=== PATIENT | female | born 1945 | race Caucasian/White ===

== ENCOUNTER → 2016-10-23 | Outpatient (CLI) | payer OTHER ==
[~2016-10-23] MED LIST: ASPCH81X PO; LISI10TA PO; LORA-741 PO; METO25TA56 PO; TAMO20TA47 PO
--- NOTE | 2016-10-23 16:06 | DIAGNOSTIC IMAGING REPORT ---
LEFT HAND MIN 3 VIEWS ROUTINE, LEFT WRIST MIN 3 VIEWS ROUTINE CLINICAL HISTORY: Left hand and wrist pain. COMPARISON STUDY: None. FINDINGS: The bones are osteopenic. Mild to moderate osteoarthritis seen within the DIP, PIP, and MCP joints. There is moderate to severe osteoarthritis at the STT joint and first carpometacarpal joint. Mildly displaced and angulated midshaft fracture of the fifth metacarpal. This demonstrates 3 mm of dorsal displacement. No fracture or dislocation within the wrist. Mild dorsal soft tissue swelling within the wrist. IMPRESSION: 1. Mildly displaced midshaft fifth metacarpal fracture. 2. No fracture or dislocation within the left wrist. Electronically signed by: Reynold Loredo M.D. 10/23/2016 4:05 PM Dictated Date/Time: 10/23/2016 3:57 PM
== END | disposition home or self-care (01) ==
LOC: C.RAD1850 15:27
PROVIDERS: ATTEND Physician Assistant
DX: M79.642 Pain in left hand (principal)

== ENCOUNTER → 2016-10-24 | Outpatient (CLI) | payer OTHER ==
--- NOTE | 2016-10-24 12:49 | DIAGNOSTIC IMAGING REPORT ---
LEFT HAND MIN 3 VIEWS CLINICAL HISTORY: Fracture. COMPARISON: 10/23/2016 DISCUSSION: There is a spiral fracture of the fifth metacarpal. Alignment remains similar to the preceding study. There is been interval base but of a fiberglass cast. The bones are osteopenic. There are osteoarthritic changes most pronounced the level the first carpal metacarpal joint. IMPRESSION: Casted fifth metacarpal fracture. No change in alignment. Electronically signed by: Xavier Darby M.D. 10/24/2016 12:48 PM Dictated Date/Time: 10/24/2016 12:46 PM
--- NOTE | 2016-10-24 12:50 | DIAGNOSTIC IMAGING REPORT ---
LEFT WRIST MIN 3 VIEWS ROUTINE CLINICAL HISTORY: Left wrist pain COMPARISON: None. DISCUSSION: The bones are osteopenic. There is a spiral/oblique fracture of the fifth metacarpal. No fractures the distal radius or ulna are visualized. IMPRESSION: Casted fracture the fifth metacarpal. No fractures of the radius or ulna are visualized. Electronically signed by: Xavier Darby M.D. 10/24/2016 12:49 PM Dictated Date/Time: 10/24/2016 12:48 PM
== END | disposition home or self-care (01) ==
LOC: C.RDSM 12:26
PROVIDERS: ATTEND Physician Assistant
DX: S62.398A Other fracture of other metacarpal bone, initial encounter for closed fracture (principal); M25.532 Pain in left wrist; X58.XXXA Exposure to other specified factors, initial encounter

== ENCOUNTER → 2016-10-31 | Outpatient (CLI) | payer OTHER ==
--- NOTE | 2016-10-31 13:15 | DIAGNOSTIC IMAGING REPORT ---
LEFT WRIST MIN 3 VIEWS ROUTINE CLINICAL HISTORY: LEFT HAND AND WRIST PAIN pain COMPARISON: 10/24/2016 DISCUSSION: Oblique fracture fifth metacarpal. Degenerative change of the intercarpal as well as carpal metacarpal joints. This is most prominent at the level from. Moderate radiocarpal degenerative change. Mild sclerosis of the lunate mild soft tissue edema. IMPRESSION: 1. Oblique fracture fifth metacarpal. 2. Degenerative change of all remaining osseous structures. 3. Moderate soft tissue edema. The above report was generated using voice recognition software. It may contain grammatical, syntax or spelling errors. Electronically signed by: Satya Nolasco M.D. 10/31/2016 1:14 PM Dictated Date/Time: 10/31/2016 1:12 PM
--- NOTE | 2016-10-31 13:31 | DIAGNOSTIC IMAGING REPORT ---
LEFT HAND 3 VIEWS HISTORY: LEFT HAND AND WRIST PAIN COMPARISON: Left hand 10/24/2016. FINDINGS: Overlying cast material has been removed. No significant healing within the slightly displaced oblique fracture within the mid shaft of the fifth metacarpal. The bones are osteopenic. Moderate osteoarthritis within the DIP and PIP joints of the hand. Severe osteoarthritis at the interphalangeal joint of the thumb and radial side of the wrist. No radiopaque foreign bodies. IMPRESSION: No significant healing and no significant change in alignment of the slightly displaced oblique fracture within the mid shaft of the left fifth metacarpal. Electronically signed by: Reynold Loredo M.D. 10/31/2016 1:30 PM Dictated Date/Time: 10/31/2016 1:26 PM
== END | disposition home or self-care (01) ==
LOC: C.RDSM 13:19
PROVIDERS: ATTEND Physician Assistant
DX: S62.308A Unspecified fracture of other metacarpal bone, initial encounter for closed fracture (principal); X58.XXXA Exposure to other specified factors, initial encounter; M25.532 Pain in left wrist

== ENCOUNTER → 2016-11-06 | Outpatient (CLI) | payer OTHER ==
[2015-11-03 13:38] VITALS: BP 130/78; PULSE 66
[2016-11-06 13:36] VITALS: BP_SYST 130; BP_SYST 148; BP_DIAS 88; BP_DIAS 93; PULSE 64; TEMP 36.9; O2SAT 94
--- NOTE | 2016-11-06 18:26 | Radiation Oncology Follow-Up ---
Radiation Oncology Follow-Up Date of Visit Nov 06, 2016. Reason For Visit Annual follow up Radiation Completion Date 2011 Diagnosis (1) Breast cancer Status: Resolved Onset Date: 11/06/2011 Histology Subtype: ductal Stage: l (A) Permanent Comment: Abnormal right breast mammogram Biopsy positive for invasive ductal carcinoma status post right partial mastectomy and sentinel lymph node biopsy followed by completion axillary dissection 11/27/2011 stage pT1c [id number] Estrogen receptor positive, progesterone receptor positive, HER-2/estelle negative Oncotype DX score 2 Status post completion of radiation therapy February 2012 received 6120 cGy Continues on antiestrogen therapy Last Edited By: Stacey Khalil on Nov 03, 2015 14:18 Interim History She has been doing well over this past year. She is noted no changes to her breast. She noticed no masses or tenderness no change in the axilla. She's had no swelling of her arm. She'll be having a mammogram next week in [place] when she sees her breast surgeon. She had previously been on Arimidex and then tamoxifen. Both medications had significant side effects. She had dizziness and diarrhea. Medication be stopped and held for 2 weeks and then restarted. Unfortunately the side effects would recur. She fell and injured her left hand and wrist first week of October. She now has a half cast in place. Allergies Coded Allergies: Penicillins (Verified Allergy, Mild, RASH, 12/07/15) Cephalexin (Verified Allergy, Unknown, severe chills after taking medication , 12/07/15) Home Medications Scheduled Aspirin (Aspirin Chewable), 81 MG PO DAILY Lisinopril (Prinivil), 10 MG PO BID Metoprolol Tartrate (Lopressor) (Lopressor), 25 MG PO BID Review of Systems Gastrointestinal: Symptoms: WNL Oral: Symptoms: No Problems Respiratory: Symptoms: WNL Respiratory Comments: Patient currently getting over PNX, finished z-kathi Other Respiratory: shallow breathing Urinary: Symptoms: WNL Skin: Symptoms: No Problems Other Skin Symptoms: Itchy on right nipple Breast: Right Upper Arm Measurement: 30.0 Right Mid Arm Measurement: 22.5 Right Wrist Measurement: 15.5 Left Upper Arm Measurement: 31.0 Left Mid Arm Measurement: 22.0 Left Wrist Measurement: 15.5 Arm Dominence: Right Physical Exam Vital Signs Date Time Temp Pulse Resp B/P (MAP) Pulse Ox O2 Delivery O2 Flow Rate FiO2 11/06/16 13:36 36.9 64 16 148/93 94 130/88 Pain: Side: Right Pain Location: None Patient Pain Scale: 0 - 10 Initial Pain Intensity: 2.0 Pain Description: Sharp Additional Comments: only when takes a deep breath General Appearance: no apparent distress Eyes: normal inspection, EOMI ENT: normal ENT inspection, hearing grossly normal Neck: no adenopathy, thyroid normal Respiratory/Chest: lungs clear, no respiratory distress, no accessory muscle use Breast: Breast examination reveals well-healed incisions of the right breast. There are no masses or tenderness no axillary adenopathy. She has no skin retractions or nipple changes. Using the Dumas score cosmesis she has a in excellent outcome. The left breast showed no masses or tenderness and no axillary adenopathy. Cardiovascular: regular rate, rhythm, no gallop, no murmur Abdomen: non tender, soft, no organomegaly Extremities: no pedal edema Neurologic/Psychiatric: no motor/sensory deficits, alert, normal mood/affect Skin: warm/dry Laboratory Studies Test 09/10/16 07:46 09/11/16 11:51 White Blood Count 3.96 K/uL (4.8-10.8) Red Blood Count 4.12 M/uL (4.2-5.4) Hemoglobin 13.7 g/dL (12.0-16.0) Hematocrit 40.1 % (37-47) Mean Corpuscular Volume 97.3 fL (80-100) Mean Corpuscular Hemoglobin 33.3 pg (25-34) Mean Corpuscular Hemoglobin Concent 34.2 g/dl (32-36) Platelet Count 218 K/uL (130-400) Mean Platelet Volume 9.7 fL (7.4-10.4) Neutrophils (%) (Auto) 48.0 % Lymphocytes (%) (Auto) 32.8 % Monocytes (%) (Auto) 8.3 % Eosinophils (%) (Auto) 9.6 % Basophils (%) (Auto) 1.0 % Neutrophils # (Auto) 1.90 K/uL (1.4-6.5) Lymphocytes # (Auto) 1.30 K/uL (1.2-3.4) Monocytes # (Auto) 0.33 K/uL (0.11-0.59) Eosinophils # (Auto) 0.38 K/uL (0-0.5) Basophils # (Auto) 0.04 K/uL (0-0.2) RDW Standard Deviation 45.6 fL (36.4-46.3) RDW Coefficient of Variation 12.9 % (11.5-14.5) Immature Granulocyte % (Auto) 0.3 % Immature Granulocyte # (Auto) 0.01 K/uL (0.00-0.02) Sodium Level 142 mmol/L (136-145) Potassium Level 3.9 mmol/L (3.5-5.1) Chloride Level 108 mmol/L (98-107) Carbon Dioxide Level 25 mmol/L (21-32) Anion Gap 9.0 mmol/L (3-11) Blood Urea Nitrogen 22 mg/dl (7-18) Creatinine 1.10 mg/dl (0.60-1.20) Estimated GFR () 57.7 Estimated GFR (Non- 49.8 BUN/Creatinine Ratio 20.3 (10-20) Random Glucose 92 mg/dl (70-99) Calcium Level 9.0 mg/dl (8.5-10.1) Total Bilirubin 0.6 mg/dl (0.2-1) Aspartate Amino Transferase (AST) 21 U/L (15-37) Alanine Aminotransferase (ALT) 26 U/L (12-78) Alkaline Phosphatase 49 U/L (45-117) Total Protein 7.4 gm/dl (6.4-8.2) Albumin 3.4 gm/dl (3.4-5.0) Globulin 4.0 gm/dl (2.5-4.0) Albumin/Globulin Ratio 0.9 (0.9-2) Triglycerides Level 113 mg/dl (0-150) Cholesterol Level 202 mg/dl (0-200) HDL Cholesterol 73 mg/dl LDL Cholesterol, Calculated 106 mg/dl VLDL Cholesterol, Calculated 23 mg/dl Cholesterol/HDL Ratio 2.8 Vitamin B12 Level 490 pg/mL (211-911) 25-Hydroxy Vitamin D Total 31.1 ng/ml (30-100) Urine Color YELLOW Urine Appearance CLOUDY (CLEAR) Urine pH 5.0 (4.5-7.5) Urine Specific [place] 1.012 (1.000-1.030) Urine Protein NEG (NEG) Urine Glucose (UA) NEG (NEG) Urine Ketones NEG (NEG) Urine Occult Blood 2+ (NEG) Urine Nitrite NEG (NEG) Urine Bilirubin NEG (NEG) Urine Urobilinogen NEG (NEG) Urine Leukocyte Esterase LARGE (NEG) Urine WBC (Auto) >30 /hpf (0-5) Urine RBC (Auto) 0-4 /hpf (0-4) Urine Hyaline Casts (Auto) 0 /lpf (0-5) Urine Epithelial Cells (Auto) 0-5 /lpf (0-5) Urine Bacteria (Auto) 2+ (NEG) Additional Studies Mammography will be performed next week in [place] Assessment & Plan Plan: Continue regular follow-up with Dr. Jarvis and Dr. Lala. She'll try to alternate these visits so that not occurring at the same time. She'll be having mammograms at [place] next week. A follow-up appointment with our office was not given. She may call our office if she has any questions or concerns we'll be happy to see her follow-up breast examinations through medical oncology and her breast surgeon. Total Time In Follow-Up I spent 20 minutes be due the patient performing examination. I spent 15 minutes reviewing information and completing this note. Copy To Eloise Lala M.D.; Jenn Jarvis M.D.; Rj Swenson M.D. Problem Qualifiers (1) Breast cancer: Estrogen receptor status: positive Patient sex: female Laterality: right
== END | disposition home or self-care (01) ==
LOC: C.ONC 13:25
PROVIDERS: ATTEND Physician Assistant Medical
DX: Z08 Encounter for follow-up examination after completed treatment for malignant neoplasm (principal); Z92.3 Personal history of irradiation; Z85.3 Personal history of malignant neoplasm of breast

== ENCOUNTER → 2016-11-19 | Outpatient (CLI) | payer OTHER ==
--- NOTE | 2016-11-19 13:50 | DIAGNOSTIC IMAGING REPORT ---
LEFT HAND MIN 3 VIEWS CLINICAL HISTORY: 71 years-old Female presenting with LEFT HAND PAIN. TECHNIQUE: Frontal, oblique, and lateral views of the left hand were obtained. COMPARISON: 10/31/2016. FINDINGS: Previously demonstrated displaced oblique fracture through the midshaft of the left fifth metacarpal is again evident. No bridging callus formation consistent with nonunion. Unchanged 2 mm of radial displacement of the distal fracture fragment. Osteopenia. Extensive degenerative change at the first carpometacarpal joint as well as at the interphalangeal joint of the first finger. Minimal degenerative changes suggested elsewhere in the distal and proximal interphalangeal joints. Apparent sclerosis of the lunate could be secondary to heterogeneous bone mineralization, degenerative change, or osteonecrosis. No new fracture or malalignment. 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 Degenerative changes above. Osteopenia. Apparent sclerosis of the lunate could be secondary to heterogeneous bone mineralization, degenerative change, or osteonecrosis. Electronically signed by: Tyshawn Gutiérrez M.D. 11/19/2016 1:49 PM Dictated Date/Time: 11/19/2016 1:45 PM
== END | disposition home or self-care (01) ==
LOC: C.RDSM 11:13
PROVIDERS: ATTEND Physician Assistant
DX: S62.327A Displaced fracture of shaft of fifth metacarpal bone, left hand, initial encounter for closed fracture (principal); X58.XXXA Exposure to other specified factors, initial encounter

== ENCOUNTER → 2016-12-21 | Outpatient (CLI) | payer OTHER ==
[~2016-12-21] MED LIST changes: -LORA-741 PO; -TAMO20TA47 PO
--- NOTE | 2016-12-21 10:19 | DIAGNOSTIC IMAGING REPORT ---
LEFT HAND 3 VIEWS HISTORY: LEFT HAND PAIN COMPARISON: Left hand 11/19/2016. FINDINGS: Progressive callus formation and sclerosis at the slightly displaced left fifth metacarpal fracture. This is consistent with interval healing. The bones remain osteopenic. Moderate osteoarthritis within the hand. No additional fractures. No dislocation. No radiopaque foreign bodies. Stable mild sclerosis of the lunate. IMPRESSION: Interval healing of the slightly displaced left fifth metacarpal fracture. Electronically signed by: Reynold Loredo M.D. 12/21/2016 10:18 AM Dictated Date/Time: 12/21/2016 10:17 AM
== END | disposition home or self-care (01) ==
LOC: C.RDSM 10:00
PROVIDERS: ATTEND Physician Assistant
DX: S62.307D Unspecified fracture of fifth metacarpal bone, left hand, subsequent encounter for fracture with routine healing (principal); X58.XXXD Exposure to other specified factors, subsequent encounter

== ENCOUNTER → 2017-01-18 | Outpatient (CLI) | payer OTHER | END | disposition home or self-care (01) | LOC: C.PAPS 13:50 | PROVIDERS: ATTEND Obstetrics & Gynecology | DX: Z01.419 Encounter for gynecological examination (general) (routine) without abnormal findings (principal) ==

== ENCOUNTER → 2017-02-01 | Outpatient (CLI) | payer OTHER ==
--- NOTE | 2017-02-01 11:29 | DIAGNOSTIC IMAGING REPORT ---
L HAND MIN 3 VIEWS CLINICAL HISTORY: F/U LEFT HAND FX fracture COMPARISON: 12/21/2016 DISCUSSION: Moderately progressive healing of the oblique fracture fifth metacarpal. Alignment remains anatomic. Generalized degenerative change throughout all remaining osseous structures stable from the prior exam. There is no evidence for soft tissue swelling. IMPRESSION: Progressive healing of the oblique fracture fifth intercarpal. The above report was generated using voice recognition software. It may contain grammatical, syntax or spelling errors. Electronically signed by: Satya Nolasco M.D. 02/01/2017 11:28 AM Dictated Date/Time: 02/01/2017 11:27 AM
== END | disposition home or self-care (01) ==
LOC: C.RDSM 15:00
PROVIDERS: ATTEND Physician Assistant
DX: Z09 Encounter for follow-up examination after completed treatment for conditions other than malignant neoplasm (principal); M79.642 Pain in left hand

== ENCOUNTER → 2017-10-18 | Outpatient (CLI) | payer OTHER | END | disposition home or self-care (01) | LOC: C.LAB1850 15:45 | PROVIDERS: ATTEND Physician Assistant | DX: R39.9 Unspecified symptoms and signs involving the genitourinary system (principal) ==